=== PATIENT | male | born 1960 | race Caucasian/White ===

== ENCOUNTER 2018-05-19 08:26 | Emergency (ER) | payer OTHER ==
[2018-05-19] MEDS ORDERED: NORMAL SALINE 1000 ML 1,000 ML IV ONE (08:56)
--- NOTE | 2018-05-19 09:00 | ER Document Report ---
ED General - General Mode of Arrival: Ambulatory Information source: Patient <DELTA ECHAVARRIA - Last Filed: 05/19/18 09:42> <MARIE RODRIGUEZ - Last Filed: 05/19/18 17:13> - General Chief Complaint: General Weakness Stated Complaint: WEAKNESS Time Seen by Provider: 05/19/18 08:40 Notes: Patient is a 57 year old male presenting to the emergency department accompanied by complaining of multiple symptoms including fatigue, general body aches, slurred speech and confusion. Patient states approximately 1 week ago he went to the gym and had a more intense workout than normal. He states he felt like he possibly "over did it" and felt very fatigued after the workout. He states he has remained fatigued over the week and states his muscles feel like they are going to be "ripped off". states the patient also developed slurred speech and had frequent falls during the week further stating he would frequently trip when going to the bathroom at night. She also states he appears more confused than normal. He also complains of darker urine, urine frequency and nasal congestion. He denies any head trauma or vomiting. (DELTA ECHAVARRIA) - Related Data Allergies/Adverse Reactions: No Known Allergies Allergy (Verified 10/10/13 11:56) Past Medical History - General Information source: Patient - Social History Smoking Status: Never Smoker Cigarette use (# per day): No Chew tobacco use (# tins/day): No Smoking Education Provided: No Frequency of alcohol use: Heavy Family History: Reviewed & Not Pertinent - Immunizations Hx Diphtheria, Pertussis, Tetanus Vaccination: Yes <DELTA ECHAVARRIA - Last Filed: 05/19/18 09:42> Review of Systems - Review of Systems Constitutional: See HPI, Other - Fatigue EENT: No symptoms reported Cardiovascular: No symptoms reported Respiratory: No symptoms reported Gastrointestinal: No symptoms reported Genitourinary: See HPI, Frequency Male Genitourinary: No symptoms reported Musculoskeletal: See HPI Skin: No symptoms reported Hematologic/Lymphatic: No symptoms reported Neurological/Psychological: See HPI, Confusion -: Yes All other systems reviewed and negative <DELTA ECHAVARRIA - Last Filed: 05/19/18 09:42> Physical Exam <DELTA ECHAVARRIA - Last Filed: 05/19/18 09:42> <MARIE RODRIGUEZ - Last Filed: 05/19/18 17:13> - Vital signs Vitals: Temp Pulse Resp BP Pulse Ox 98.0 F 88 20 156/95 H 96 05/19/18 08:29 05/19/18 08:29 05/19/18 08:29 05/19/18 08:29 05/19/18 08:29 - Notes Notes: GENERAL: Alert, interacts well, strongly smells of ETOH. No acute distress. HEAD: Normocephalic, atraumatic. EYES: Pupils equal, round, and reactive to light. Extraocular movements intact. ENT: Oral mucosa moist, tongue midline. NECK: Full range of motion. Supple. Trachea midline. LUNGS: Clear to auscultation bilaterally, no wheezes, rales, or rhonchi. No respiratory distress. HEART: Regular rate and rhythm. No murmurs, gallops, or rubs. ABDOMEN: Soft, non-tender. Non-distended. Bowel sounds present in all 4 quadrants. EXTREMITIES: Moves all 4 extremities spontaneously. 5/5 muscle strength in the BLE. No pronator drift. No edema, radial and dorsalis pedis pulses 2/4 bilaterally. No cyanosis. NEUROLOGICAL: Alert and oriented x3. Slightly slurred speech. Cranial nerves II through XII grossly intact. No faical droop, no tongue deviation. PSYCH: Normal affect, normal mood. SKIN: Warm, dry, normal turgor. No rashes or lesions noted. (DELTA ECHAVARRIA) Course - Laboratory Result Diagrams: 05/19/18 08:39 05/19/18 08:39 <DELTA ECHAVARRIA - Last Filed: 05/19/18 09:42> - Laboratory Result Diagrams: 05/19/18 08:39 05/19/18 08:39 <MARIE RODRIGUEZ - Last Filed: 05/19/18 17:13> - Re-evaluation Re-evalutation: 05/19/18 11:40 CBC shows some hemoconcentration with hemoglobin 17.8 otherwise unremarkable, CMP shows elevated AST and ALT about twice the limits of normal, CK mildly elevated at 526 consistent with increased workup, troponin negative, urinalysis unremarkable, no evidence of rhabdomyolysis, serum alcohol level is 141. This is not consistent with the patient's report that he had a 6 pack last night and has not had anything to drink since about 9:00 last night. Discussed this discrepancy with the patient whose then proposed that he may be sleeping drinking. states that he has been known to sleep walk and he is even cooked and eaten an entire pizza while he has been asleep. Discussed with the family that this could be possible but I am also concerned for the possibility of alcoholism and alcohol abuse. Suggested that if they truly think his elevated alcohol level is from "sleep drinking" that they should lock up all the alcohol in the house in a cabinet where the patient does not have access to the curtis in order to stop the possibility of sleep drinking. CT scan of the head is also negative, no evidence of stroke. Patient's presentation is consistent with mild alcohol intoxication. Discussed with patient that his muscle aches are likely coming from the fact that he dramatically increased his workout without any slow increase in exercise. Recommended that the patient decrease his cardio and then slowly build up to his current regimen. Recommended drinking plenty of fluids, also recommended that he follow-up with a sleep doctor as he states that he only drinks so that he can sleep. Discussed with the patient that drinking alcohol actually decreases her quality and quantity of sleep and that if he is having difficulty sleeping seeing a sleep medicine specialist could help. Patient was referred to Dr. Madrid. (MARIE RODRIGUEZ) - Vital Signs Vital signs: Temp Pulse Resp BP Pulse Ox 98.0 F 88 12 138/88 H 95 05/19/18 08:29 05/19/18 08:29 05/19/18 11:01 05/19/18 11:01 05/19/18 11:01 - Laboratory Laboratory results interpreted by me: 05/19/18 05/19/18 05/19/18 08:39 08:39 08:39 Hgb 17.8 H Hct 51.5 H RDW 14.7 H Lymphocytes % 11.6 L AST 91 H ALT 74 H Creatine Kinase 526 H CK-MB (CK-2) 10.50 H Urine Urobilinogen 05/19/18 09:37 Hgb Hct RDW Lymphocytes % AST ALT Creatine Kinase CK-MB (CK-2) Urine Urobilinogen 4.0 H - EKG Interpretation by Me Additional EKG results interpreted by me: 05/19/18 11:40 EKG shows sinus rhythm at a rate of 77, no normal intervals, no ST segment elevations or depressions, there are isolated T wave inversions in 3 and aVF per my interpretation. (MARIE RODRIGUEZ) Discharge <DELTA ECHAVARRIA - Last Filed: 05/19/18 09:42> <MARIE RODRIGUEZ - Last Filed: 05/19/18 17:13> - Discharge Clinical Impression: Myalgia Acute alcohol intoxication Qualifiers: Complication of substance-induced condition: uncomplicated Qualified Code(s): F10.929 - Alcohol use, unspecified with intoxication, unspecified Insomnia Qualifiers: Insomnia type: unspecified Qualified Code(s): G47.00 - Insomnia, unspecified Condition: Stable Disposition: HOME, SELF-CARE Additional Instructions: Please decrease your exercise routine and then slowly build up to a more aggressive routine rather than starting all at once. Please consider decreasing the amount that you drink. Please follow-up with a sleep doctor as you state you think you have been "sleep drinking". You also mentioned that you drink because you cannot sleep. Alcohol will actually worsen your quality of sleep and worsen the quantity of sleep. It is very important that you follow-up with Dr. Madrid at the sleep specialist in the area for further evaluation of your difficulty sleeping. He may be able to come up with a better solution than drinking. I prescribed a muscle relaxer called Flexeril, you may take 1 tablet every 8 hours as needed for muscle cramps. If it does not make you sleepy and you are still having cramps you may increase to 2 tablets every 8 hours for the next 5 days. Prescriptions: Cyclobenzaprine HCl [Flexeril 5 mg Tablet] 5 mg PO TID #15 tablet Referrals: MAGI CASTRO MD [Primary Care Provider] - Follow up as needed BRYAN MADRID MD [ACTIVE STAFF] - Follow up as needed Scribe Attestation: 05/19/18 17:13 I personally performed the services described in the documentation, reviewed and edited the documentation which was dictated to the scribe in my presence, and it accurately records my words and actions. (MARIE RODRIGUEZ) Scribe Documentation - Scribe Written by Scribe:: Bertha Cheng, 05/19/2018 08:57 acting as scribe for :: Bj <DELTA ECHAVARRIA - Last Filed: 05/19/18 09:42>
[2018-05-19 09:24] LABS: ABSOLUTE EOSINOPHILS # (AUTO) 0.2 10^3/uL (0.0-0.6); ABSOLUTE MONOCYTES (AUTO) 0.9 10^3/uL (0.1-1.4); ABSOLUTE NEUT (AUTO) 6.8 10^3/uL (1.7-8.2); BASOPHILS % (AUTO) 0.3 % (0-2); EOSINOPHILS % (AUTO) 2.1 % (0-6); HEMATOCRIT 51.5 % (37.9-51.0); HEMOGLOBIN 17.8 g/dL (13.5-17.0); LYMPHOCYTES % (AUTO) 11.6 % (13-45); MEAN CORPUSCULAR HEMOGLOBIN 32.4 pg (27.0-33.4); MEAN CORPUSCULAR HGB CONC 34.6 g/dL (32.0-36.0); MEAN CORPUSCULAR VOLUME 94 fl (80-97); MONOCYTES % (AUTO) 10.5 % (3-13); PLATELET COUNT 263 10^3/uL (150-450); RED CELL DISTRIBUTION WIDTH 14.7 % (11.5-14.0); SEGMENTED NEUTROPHILS % (AUTO) 75.5 % (42-78); TOTAL CELLS COUNTED % (AUTO) 100 %
--- NOTE | 2018-05-19 09:24 | RADIOLOGY REPORT (SQ) ---
EXAM DESCRIPTION: CT HEAD WITHOUT COMPLETED DATE/TIME: 05/19/2018 9:09 am REASON FOR STUDY: slurred speech, on ASA, falling COMPARISON: None. TECHNIQUE: Axial images acquired through the brain without intravenous contrast. Images reviewed wi th bone, brain and subdural windows. Additional sagittal and coronal reconstructions were generated. Images stored on PACS. All CT scanners at this facility use dose modulation, iterative reconstruction, and/or weight based d osing when appropriate to reduce radiation dose to as low as reasonably achievable (ALARA). [facility]: Dose Right [facility]: CareDose [facility]: Dose Right [facility]: Teradose 4D [facility]: [employer] RADIATION DOSE: CT Rad equipment meets quality standard of care and radiation dose reduction techniq ues were employed. CTDIvol: 53.2 mGy. DLP: 1044 mGy-cm. mGy. LIMITATIONS: None. FINDINGS: VENTRICLES: Normal size and contour. CEREBRUM: No masses. No hemorrhage. No midline shift. No evidence for acute infarction. Normal gra y/white matter differentiation. No areas of low density in the white matter. CEREBELLUM: No masses. No hemorrhage. No alteration of density. No evidence for acute infarction. EXTRAAXIAL SPACES: No fluid collections. No masses. ORBITS AND GLOBE: No intra- or extraconal masses. Normal contour of globe without masses. CALVARIUM: No fracture. PARANASAL SINUSES: No fluid or mucosal thickening. SOFT TISSUES: No mass or hematoma. OTHER: No other significant finding. IMPRESSION: No acute intracranial pathology. No CT evidence of acute stroke or hemorrhage. MRI may be used to more sensitively evaluate if desired. EVIDENCE OF ACUTE STROKE: NO. COMMENT: Quality ID # [id number]: Final reports with documentation of one or more dose reduction techniques (e.g., Automated exposure control, adjustment of the mA and/or kV according to patient size, use of iterative reconstruction technique) TECHNICAL DOCUMENTATION: JOB ID: [id number] boarding pass- All Rights Reserved Reading location - IP/workstation name: [email or web address]
[2018-05-19 09:26] LABS: ALANINE AMINOTRANSFERASE 74 U/L (21-72); ALBUMIN 4.4 g/dL (3.5-5.0); ALCOHOL 141 mg/dL (NONE DETECTED); ALKALINE PHOSPHATASE 44 U/L (38-126); ANION GAP 13 (5-19); ASPARTATE AMINO TRANSFERASE 91 U/L (17-59); BILIRUBIN,DIRECT 0.3 mg/dL (0.0-0.4); BILIRUBIN,TOTAL 0.9 mg/dL (0.2-1.3); BLOOD UREA NITROGEN 16 mg/dL (7-20); CALCIUM 9.5 mg/dL (8.4-10.2); CARBON DIOXIDE 28 mmol/L (22-30); CHLORIDE 103 mmol/L (98-107); CREATINE KINASE 526 U/L (55-170); GLUCOSE 88 mg/dL (75-110); POTASSIUM 4.9 mmol/L (3.6-5.0); SODIUM 143.8 mmol/L (137-145); TOTAL PROTEIN 7.2 g/dL (6.3-8.2)
[2018-05-19 09:44] LABS: TROPONIN I < 0.012 ng/mL
[2018-05-19 09:58] LABS: APPEARANCE,URINE CLEAR; BILIRUBIN,URINE NEGATIVE (NEGATIVE); COLOR,URINE YELLOW; GLUCOSE, URINE NEGATIVE (NEGATIVE); KETONES,URINE NEGATIVE (NEGATIVE); LEUKOCYTE ESTERASE,URINE NEGATIVE (NEGATIVE); NITRITE,URINE NEGATIVE (NEGATIVE); PROTEIN,URINE NEGATIVE (NEGATIVE)
--- NOTE | 2018-05-19 10:33 | EKG REPORT ---
SEVERITY:- BORDERLINE ECG - SINUS RHYTHM BORDERLINE T ABNORMALITIES, INFERIOR LEADS : Confirmed by: Khadijah Madrid 19-May-2018 10:32:28
[2018-05-19 11:30] VITALS: BP 138/88
== END 2018-05-19 11:49 | disposition home or self-care (01) ==
LOC: ER 08:26
DX: G47.00 Insomnia, unspecified (principal); M79.10 Myalgia, unspecified site; F10.929 Alcohol use, unspecified with intoxication, unspecified; R53.1 Weakness; R53.83 Other fatigue; R47.81 Slurred speech; R41.0 Disorientation, unspecified; R39.198 Other difficulties with micturition; R35.0 Frequency of micturition; R09.81 Nasal congestion
CPT/HCPCS: 93005; 99285; 96360; 36415; 82553; 80307; 82550; 85025; 80053; 81001; 84484; 70450; 93010; J7030